=== PATIENT | male | born 1985 | race Caucasian/White ===

== ENCOUNTER 2018-05-14 18:43 | Inpatient (IN) ==
[2018-05-14] MEDS ORDERED: 0.9 % Sodium Chloride 1,000 ML IVC ONE (18:59)
[2018-05-14] MEDS ORDERED: Ketamine *HR* 12 MG in 0.9 % Sodium Chloride 100 ML IVPB ONE ×2 (18:59→21:20)
[2018-05-14] MEDS ORDERED: Ketorolac 30 MG/ML VIAL IVP ONE (18:59)
[2018-05-14] MEDS ORDERED: Ondansetron 4 MG/2 ML VIAL IVP ONE (18:59)
[2018-05-14] MEDS ORDERED: Isovue-370 500 ML INFUS..BTL IV ONE (19:00)
--- NOTE | 2018-05-14 19:02 | Emergency Department Note ---
Disposition Clinical Impression: Abscess Abdominal pain Qualifiers: Abdominal location: right lower quadrant Qualified Code(s): R10.31 - Right lower quadrant pain Crohn's colitis Qualifiers: Digestive disease complication type: unspecified complication Qualified Code(s) : K50.119 - Crohn's disease of large intestine with unspecified complications Disposition: Admitted As Inpatient Condition: Fair Referrals: NONE,PCP [Primary Care Provider] - Forms: ED Satisfaction Letter, Work/School Release Abdominal Pain HPI - General Chief Complaint: ED Abdominal Pain Stated Complaint: Low Abd Pain Time Seen by Provider: 05/14/18 18:54 Source: patient, EMS Mode of arrival: EMS Limitations: no limitations Nursing Notes Reviewed: Yes Vital Signs Reviewed: Yes - History of Present Illness HPI Narrative: 33-year-old male with a history of Crohn's presents for evaluation of lower abdominal pain. Notes pain over the past day and a half. Notes pain in the lower abdomen primarily on the right side. No aggravating factors identified. Patient states he takes Prevacid but does not follow with a GI doctor. States it he will was following with GI here however he missed an appointment and is no longer a patient. Reports some dry heaves. No fevers. Reports chronic constipation that appears to be intermittently bloody. Denies any hematuria or dysuria. Denies being on any steroids. States his last flareup was a proximally 4 years ago. Patient does have remote history of IV drug use for years ago and states that he is on Suboxone. Pain Scale: 10 - Related Data Home Medications Medication Instructions Recorded Confirmed Buprenorphine HCl/Naloxone HCl 1 each SL BID 12/14/16 12/14/16 [Suboxone 8 mg-2 mg Sl Film] Gabapentin [Neurontin] 600 mg PO TID 12/14/16 12/14/16 Omeprazole [PriLOSEC] 20 mg PO DAILY 12/14/16 12/14/16 Previous Rx's Medication Instructions Recorded Mupirocin Calcium [Bactroban Nasal] 1 gm NS BID #1 oint...g. 05/11/17 Sulfamethoxazole/Trimeth DS 1 each PO BID #20 tablet 05/11/17 [Bactrim DS] Allergies Allergy/AdvReac Type Severity Reaction Status Date / Time codeine Allergy Hives Verified 05/11/17 18:13 All systems ED: reviewed and negative except as stated. Constitutional: Denies: fever Cardiovascular: Denies: chest pain Respiratory: Denies: cough, dyspnea Gastrointestinal: Reports: abdominal pain, nausea, vomiting, diarrhea Genitourinary: Denies: urgency, dysuria, frequency, hematuria Musculoskeletal: Denies: back pain Integumentary: Denies: rash Abdominal Pain PMH - Past Medical History Medical history: Reports: other Male Surgical History: Reports: other Psychiatric history: Reports: no psych history - Social History Smoking status: Current every day smoker Alcohol use: Reports: occasionally Drug use: Reports: marijuana Physical Exam - General Limitations: no limitations General appearance: alert, in distress - Head Head exam: atraumatic, normocephalic, normal inspection - Eye Eye exam: Present: normal appearance, PERRL, EOMI - ENT ENT exam: normal exam, normal oropharynx, mucous membranes moist - Neck Neck exam: Present: normal inspection - Chest Chest inspection: Present: normal inspection, symmetric chest wall rise - Respiratory Respiratory exam: Present: normal lung sounds bilaterally. Absent: respiratory distress - Cardiovascular Cardiovascular exam: Present: regular rate, normal rhythm. Absent: systolic murmur - Abdominal Exam Abdominal exam: Present: soft, tenderness (Right lower quadrant). Absent: guarding, rebound - Extremities Exam Extremities exam: Present: normal inspection. Absent: pedal edema - Back Exam Back exam: Present: normal inspection. Absent: tenderness, CVA tenderness (R), CVA tenderness (L) - Neurological Exam Neurological exam: Present: alert, oriented X3, CN II-XII intact - Skin Skin exam: Present: warm, dry, intact, normal color Course Course Narrative: Patient seen and examined. Patient will get basic labs, IV fluids antiemetics and pain control. Patient also get a CT scan of the abdomen pelvis. Disposition pending. - Reevaluation(s) Reevaluation #1: Patient seen and examined. Patient's updated on plan of care. Discussed the case with the hospitalist who admitted the patient. States that they will contact GI in the morning. Time: 21:17 Reevaluation #2: Patient's agreeable with plan of care. Will re-dose the patient's pain medicine Time: 21:20 - Consultations Consultation #1: Discussed with the case with Dr. Lockhart. Consult is placed. States that the primary team would need to consult GI. Time: 21:12 Vital Signs Temperature 99.0 F 05/14/18 18:53 Pulse Rate 92 05/14/18 18:53 Respiratory Rate 20 05/14/18 18:53 Blood Pressure 130/93 05/14/18 18:53 O2 Sat by Pulse Oximetry 97 05/14/18 18:53 Temperature 99.0 F 05/14/18 18:53 Pulse Rate 85 05/14/18 19:14 Respiratory Rate 20 05/14/18 19:14 Blood Pressure 123/76 05/14/18 19:14 O2 Sat by Pulse Oximetry 96 05/14/18 19:14 Oxygen Delivery Oxygen Delivery Room Air Abdominal Pain - MDM Narrative Medical decision making narrative: Patient presents for concerns of abdominal pain. Patient's workup reveals an acute Crohn's flare with concerns for phlegmon versus early abscess. Given the CT findings surgery was consult at. Patient's abdomen at this time is nonsurgical. Patient does have some moderate tenderness without rebound. Does have some voluntary guarding. Patient will likely need GI involvement and the hospitalist will contact GI in the morning. Patient was covered with broad- spectrum antibiotics. Hospitalist recommended blood cultures as well as Zosyn and Flagyl. - Lab Data Lab results reviewed: Yes I reviewed the patient's lab results. Result diagrams: 05/14/18 19:04 05/14/18 19:04 Lab Results 05/14/18 05/14/18 05/14/18 Range/Units 18:52 19:04 19:04 WBC 13.9 H (4.3-11.1) K/mcL RBC 4.16 L (4.19-5.50) M/mcL Hgb 11.9 L (12.9-16.9) g/dL Hct 35.9 L (37.5-50.1) % MCV 86.3 (83.0-100.0) fL MCH 28.6 (28.0-33.3) pg MCHC 33.1 (31.6-35.5) g/dL RDW 12.6 (11.5-14.5) % Plt Count 312 (140-400) K/mcL MPV 10.7 (9.4-12.4) fL Immature Gran % 0.3 (0-4) % Seg Neutrophils % 81.6 % Lymphocytes % 9.5 % Monocytes % 5.8 % Eosinophils % 2.4 % Basophils % 0.4 % Neutrophils # 11.3 H (1.6-8.9) K/mcL Lymphocytes # 1.3 (0.6-4.6) K/mcL Monocytes # 0.8 (0.0-1.3) K/mcL Eosinophils # 0.3 (0.0-0.6) K/mcL Basophils # 0.1 (0.0-0.2) K/mcL Sodium 134 L (136-145) mEq/L Potassium 3.4 L (3.5-5.1) mEq/L Chloride 99 (98-107) mEq/L Carbon Dioxide 26 (23-29) mEq/L BUN 12 (6-20) mg/dL Creatinine 0.86 (0.70-1.30) mg/dL Est GFR ( Amer) > 60 (> 60) Est GFR (Non-Af Amer) > 60 (> 60) BUN/Creatinine Ratio 14 (6-26) Glucose 98 (70-105) mg/dL Calculated Osmolality 278 L (280-300) Lactic Acid (0.5-2.2) mmol/L Calcium 8.6 (8.6-10.3) mg/dL Total Bilirubin 0.5 (0.3-1.0) mg/dL Direct Bilirubin 0.0 (0.0-0.2) mg/dL Indirect Bilirubin 0.5 (0.0-1.2) mg/dL AST 11 L (13-39) Units/L ALT 5 L (7-52) Units/L Alkaline Phosphatase 67 (34-104) Units/L Serum Total Protein 6.4 (6.4-8.9) g/dL Albumin 3.6 (3.5-5.7) g/dL Globulin 2.8 (2.4-3.5) g/dL Albumin/Globulin Ratio 1.3 (1.1-2.2) Lipase Cancelled Urine Color Dark Yellow (Yellow) Urine Clarity Clear (Clear) Urine pH 6.0 (5.0-8.0) pH Units Ur Specific [place] 1.021 (1.010-1.025) Urine Protein 30 H (Neg-Trace) mg/dL Urine Glucose (UA) Normal (Normal) mg/dL Urine Ketones 15 H (Negative) mg/dL Urine Blood Negative (Negative) Urine Nitrite Negative (Negative) Urine Bilirubin Small H (Negative) Urine Urobilinogen Normal (Normal) mg/dL Ur Leukocyte Esterase Trace H (Negative) Urine Microscopic RBC 3-5 H (0-3) per hpf Urine Microscopic WBC 0-3 (0-3) per hpf Ur Squamous Epith Cells None Seen (None-Few) per lpf Urine Bacteria None Seen (None-Few) per hpf Hyaline Casts None Seen (None-Few) per lpf Ur Culture Indicated? YES A (NO) Specimen Rejected 05/14/18 05/14/18 05/14/18 Range/Units 19:04 19:04 20:16 WBC (4.3-11.1) K/mcL RBC (4.19-5.50) M/mcL Hgb (12.9-16.9) g/dL Hct (37.5-50.1) % MCV (83.0-100.0) fL MCH (28.0-33.3) pg MCHC (31.6-35.5) g/dL RDW (11.5-14.5) % Plt Count (140-400) K/mcL MPV (9.4-12.4) fL Immature Gran % (0-4) % Seg Neutrophils % % Lymphocytes % % Monocytes % % Eosinophils % % Basophils % % Neutrophils # (1.6-8.9) K/mcL Lymphocytes # (0.6-4.6) K/mcL Monocytes # (0.0-1.3) K/mcL Eosinophils # (0.0-0.6) K/mcL Basophils # (0.0-0.2) K/mcL Sodium (136-145) mEq/L Potassium (3.5-5.1) mEq/L Chloride (98-107) mEq/L Carbon Dioxide (23-29) mEq/L BUN (6-20) mg/dL Creatinine (0.70-1.30) mg/dL Est GFR ( Amer) (> 60) Est GFR (Non-Af Amer) (> 60) BUN/Creatinine Ratio (6-26) Glucose (70-105) mg/dL Calculated Osmolality (280-300) Lactic Acid 0.5 (0.5-2.2) mmol/L Calcium (8.6-10.3) mg/dL Total Bilirubin (0.3-1.0) mg/dL Direct Bilirubin (0.0-0.2) mg/dL Indirect Bilirubin (0.0-1.2) mg/dL AST (13-39) Units/L ALT (7-52) Units/L Alkaline Phosphatase (34-104) Units/L Serum Total Protein (6.4-8.9) g/dL Albumin (3.5-5.7) g/dL Globulin (2.4-3.5) g/dL Albumin/Globulin Ratio (1.1-2.2) Lipase < 3 L Urine Color (Yellow) Urine Clarity (Clear) Urine pH (5.0-8.0) pH Units Ur Specific [place] (1.010-1.025) Urine Protein (Neg-Trace) mg/dL Urine Glucose (UA) (Normal) mg/dL Urine Ketones (Negative) mg/dL Urine Blood (Negative) Urine Nitrite (Negative) Urine Bilirubin (Negative) Urine Urobilinogen (Normal) mg/dL Ur Leukocyte Esterase (Negative) Urine Microscopic RBC (0-3) per hpf Urine Microscopic WBC (0-3) per hpf Ur Squamous Epith Cells (None-Few) per lpf Urine Bacteria (None-Few) per hpf Hyaline Casts (None-Few) per lpf Ur Culture Indicated? (NO) Specimen Rejected Miscellaneous - Radiology Data Radiology results reviewed: Yes I reviewed the patient's radiology results. Abdomen/Pelvis CT 05/14/18 19:00 IMPRESSION: 1. Findings of acute Crohn's flare with partially rim enhancing right lower quadrant mesenteric fluid concerning for phlegmon or early abscess. No free air to suggest perforation or evidence of bowel obstruction. 2. Partially visualized tree-in-bud opacity in the left lower lobe consistent with acute bronchiolitis. D/ / eLonel Jc / Leonel Jc Interpreting Provider: Leonel Jc S.Amador - Cece Situation: Demographics Background: Presenting Complaint Assessment: Vital Signs, Course and respsone to treatment, Patient/Family Expectation Recommendation: Barrier(s) to disposition, Recommendation based on pending studies, treatments, or consults Cece Report Given to: Dr. Vito Zhao Repor Time: 21:19
--- NOTE | 2018-05-14 19:18 | Emergency Department Note ---
Disposition Clinical Impression: Crocq disease, Abscess Abdominal pain Qualifiers: Abdominal location: right lower quadrant Qualified Code(s): R10.31 - Right lower quadrant pain Disposition: Admitted As Inpatient Condition: Fair Referrals: NONE,PCP [Primary Care Provider] - Forms: ED Satisfaction Letter, Work/School Release General Adult HPI - General Chief complaint: ED Abdominal Pain Stated complaint: Low Abd Pain Time Seen by Provider: 05/14/18 18:54 Source: patient, EMS Mode of arrival: EMS Limitations: no limitations - History of Present Illness Pain Scale: 10 - Related Data Home Medications Medication Instructions Recorded Confirmed Buprenorphine HCl/Naloxone HCl 1 each SL BID 12/14/16 12/14/16 [Suboxone 8 mg-2 mg Sl Film] Gabapentin [Neurontin] 600 mg PO TID 12/14/16 12/14/16 Omeprazole [PriLOSEC] 20 mg PO DAILY 12/14/16 12/14/16 Previous Rx's Medication Instructions Recorded Mupirocin Calcium [Bactroban Nasal] 1 gm NS BID #1 oint...g. 05/11/17 Sulfamethoxazole/Trimeth DS 1 each PO BID #20 tablet 05/11/17 [Bactrim DS] Allergies Allergy/AdvReac Type Severity Reaction Status Date / Time codeine Allergy Hives Verified 05/11/17 18:13 Constitutional: Denies: fever Cardiovascular: Denies: chest pain Respiratory: Denies: cough, dyspnea Gastrointestinal: Reports: abdominal pain, nausea, vomiting, diarrhea Genitourinary: Denies: urgency, dysuria, frequency, hematuria Musculoskeletal: Denies: back pain Integumentary: Denies: rash Past Medical History - Past Medical History Medical history: Reports: other Surgical history: Reports: non-contributory Psychiatric history: Reports: no psych history - Social History Smoking Status: Current every day smoker Smokeless Tobacco Status: No Alcohol use: Reports: occasionally Drug use: Reports: marijuana Physical Exam - General Limitations: no limitations General appearance: alert, in distress Course Vital Signs Temperature 99.0 F 05/14/18 18:53 Pulse Rate 92 05/14/18 18:53 Respiratory Rate 20 05/14/18 18:53 Blood Pressure 130/93 05/14/18 18:53 O2 Sat by Pulse Oximetry 97 05/14/18 18:53 Temperature 99.0 F 10/07/18 18:53 Pulse Rate 85 05/14/18 19:14 Respiratory Rate 20 05/14/18 19:14 Blood Pressure 123/76 05/14/18 19:14 O2 Sat by Pulse Oximetry 96 05/14/18 19:14 Oxygen Delivery Oxygen Delivery Room Air Medical Decision Making - MDM Narrative Medical decision making narrative: pt with phlegmon/abscess in right ilieum. admit consult gen surg. admit to hospitalist lisa - Medical Records Medical records reviewed: Yes I reviewed the patient's medical records. - Lab Data Lab results reviewed: Yes I reviewed the patient's lab results. Result diagrams: 05/14/18 19:04 05/14/18 19:04 Lab Results 05/14/18 05/14/18 05/14/18 Range/Units 18:52 19:04 19:04 WBC 13.9 H (4.3-11.1) K/mcL RBC 4.16 L (4.19-5.50) M/mcL Hgb 11.9 L (12.9-16.9) g/dL Hct 35.9 L (37.5-50.1) % MCV 86.3 (83.0-100.0) fL MCH 28.6 (28.0-33.3) pg MCHC 33.1 (31.6-35.5) g/dL RDW 12.6 (11.5-14.5) % Plt Count 312 (140-400) K/mcL MPV 10.7 (9.4-12.4) fL Immature Gran % 0.3 (0-4) % Seg Neutrophils % 81.6 % Lymphocytes % 9.5 % Monocytes % 5.8 % Eosinophils % 2.4 % Basophils % 0.4 % Neutrophils # 11.3 H (1.6-8.9) K/mcL Lymphocytes # 1.3 (0.6-4.6) K/mcL Monocytes # 0.8 (0.0-1.3) K/mcL Eosinophils # 0.3 (0.0-0.6) K/mcL Basophils # 0.1 (0.0-0.2) K/mcL Sodium 134 L (136-145) mEq/L Potassium 3.4 L (3.5-5.1) mEq/L Chloride 99 (98-107) mEq/L Carbon Dioxide 26 (23-29) mEq/L BUN 12 (6-20) mg/dL Creatinine 0.86 (0.70-1.30) mg/dL Est GFR ( Amer) > 60 (> 60) Est GFR (Non-Af Amer) > 60 (> 60) BUN/Creatinine Ratio 14 (6-26) Glucose 98 (70-105) mg/dL Calculated Osmolality 278 L (280-300) Lactic Acid (0.5-2.2) mmol/L Calcium 8.6 (8.6-10.3) mg/dL Total Bilirubin 0.5 (0.3-1.0) mg/dL Direct Bilirubin 0.0 (0.0-0.2) mg/dL Indirect Bilirubin 0.5 (0.0-1.2) mg/dL AST 11 L (13-39) Units/L ALT 5 L (7-52) Units/L Alkaline Phosphatase 67 (34-104) Units/L Serum Total Protein 6.4 (6.4-8.9) g/dL Albumin 3.6 (3.5-5.7) g/dL Globulin 2.8 (2.4-3.5) g/dL Albumin/Globulin Ratio 1.3 (1.1-2.2) Lipase Cancelled Urine Color Dark Yellow (Yellow) Urine Clarity Clear (Clear) Urine pH 6.0 (5.0-8.0) pH Units Ur Specific [place] 1.021 (1.010-1.025) Urine Protein 30 H (Neg-Trace) mg/dL Urine Glucose (UA) Normal (Normal) mg/dL Urine Ketones 15 H (Negative) mg/dL Urine Blood Negative (Negative) Urine Nitrite Negative (Negative) Urine Bilirubin Small H (Negative) Urine Urobilinogen Normal (Normal) mg/dL Ur Leukocyte Esterase Trace H (Negative) Urine Microscopic RBC 3-5 H (0-3) per hpf Urine Microscopic WBC 0-3 (0-3) per hpf Ur Squamous Epith Cells None Seen (None-Few) per lpf Urine Bacteria None Seen (None-Few) per hpf Hyaline Casts None Seen (None-Few) per lpf Ur Culture Indicated? YES A (NO) Specimen Rejected 05/14/18 05/14/18 05/14/18 Range/Units 19:04 19:04 20:16 WBC (4.3-11.1) K/mcL RBC (4.19-5.50) M/mcL Hgb (12.9-16.9) g/dL Hct (37.5-50.1) % MCV (83.0-100.0) fL MCH (28.0-33.3) pg MCHC (31.6-35.5) g/dL RDW (11.5-14.5) % Plt Count (140-400) K/mcL MPV (9.4-12.4) fL Immature Gran % (0-4) % Seg Neutrophils % % Lymphocytes % % Monocytes % % Eosinophils % % Basophils % % Neutrophils # (1.6-8.9) K/mcL Lymphocytes # (0.6-4.6) K/mcL Monocytes # (0.0-1.3) K/mcL Eosinophils # (0.0-0.6) K/mcL Basophils # (0.0-0.2) K/mcL Sodium (136-145) mEq/L Potassium (3.5-5.1) mEq/L Chloride (98-107) mEq/L Carbon Dioxide (23-29) mEq/L BUN (6-20) mg/dL Creatinine (0.70-1.30) mg/dL Est GFR ( Amer) (> 60) Est GFR (Non-Af Amer) (> 60) BUN/Creatinine Ratio (6-26) Glucose (70-105) mg/dL Calculated Osmolality (280-300) Lactic Acid 0.5 (0.5-2.2) mmol/L Calcium (8.6-10.3) mg/dL Total Bilirubin (0.3-1.0) mg/dL Direct Bilirubin (0.0-0.2) mg/dL Indirect Bilirubin (0.0-1.2) mg/dL AST (13-39) Units/L ALT (7-52) Units/L Alkaline Phosphatase (34-104) Units/L Serum Total Protein (6.4-8.9) g/dL Albumin (3.5-5.7) g/dL Globulin (2.4-3.5) g/dL Albumin/Globulin Ratio (1.1-2.2) Lipase < 3 L Urine Color (Yellow) Urine Clarity (Clear) Urine pH (5.0-8.0) pH Units Ur Specific [place] (1.010-1.025) Urine Protein (Neg-Trace) mg/dL Urine Glucose (UA) (Normal) mg/dL Urine Ketones (Negative) mg/dL Urine Blood (Negative) Urine Nitrite (Negative) Urine Bilirubin (Negative) Urine Urobilinogen (Normal) mg/dL Ur Leukocyte Esterase (Negative) Urine Microscopic RBC (0-3) per hpf Urine Microscopic WBC (0-3) per hpf Ur Squamous Epith Cells (None-Few) per lpf Urine Bacteria (None-Few) per hpf Hyaline Casts (None-Few) per lpf Ur Culture Indicated? (NO) Specimen Rejected Miscellaneous - Radiology Data Radiology results reviewed: Yes I reviewed the patient's radiology results. Critical Care Time Critical Care Time: No Attestation Statement - Attestation Attestation: I examined this patient and my medical decision-making was reviewed with the Resident Physician. I agree with the documented findings, disposition and treatment plan as described except to the extent set forth below. 33-year-old male presents emergency room for abdominal pain. Associated with chronic diarrhea secondary to Crohn's disease. Patient states is been having pain with going to the bathroom with stool. He also admits to dry heaves today. Most the pain is in the lower abdomen but also has right lower quadrant pain. We will check lab work, CT scan to rule out any intra-abdominal pathology as a possibility. He could have abscess formation secondary to Crohn's disease or acute appendicitis or a terminal ileitis.
[2018-05-14 19:20] LABS: Basophils # 0.1 K/mcL (0.0-0.2); Basophils % 0.4 %; Eosinophils # 0.3 K/mcL (0.0-0.6); Eosinophils % 2.4 %; Hematocrit 35.9 % (37.5-50.1); Hemoglobin 11.9 g/dL (12.9-16.9); Immature Granulocytes % 0.3 % (0-4); Lymphocytes # 1.3 K/mcL (0.6-4.6); Lymphocytes % 9.5 %; Mean Corpuscular HGB Conc 33.1 g/dL (31.6-35.5); Mean Corpuscular Hemoglobin 28.6 pg (28.0-33.3); Mean Corpuscular Volume 86.3 fL (83.0-100.0); Mean Platelet Volume 10.7 fL (9.4-12.4); Monocytes # 0.8 K/mcL (0.0-1.3); Monocytes % 5.8 %; Neutrophils # 11.3 K/mcL (1.6-8.9); Platelet Count 312 K/mcL (140-400); Red Blood Count 4.16 M/mcL (4.19-5.50); Red Cell Distribution Width 12.6 % (11.5-14.5); Segmented Neutrophils % 81.6 %
[2018-05-14 19:39] LABS: Bilirubin,Urine Small (Negative); Blood,Urine Negative (Negative); Clarity,Urine Clear (Clear); Color,Urine Dark Yellow (Yellow); Glucose,Urine (UA) Normal (Normal); Ketones,Urine 15 mg/dL (Negative); Leukocyte Esterase,Urine Trace (Negative); Nitrite,Urine Negative (Negative); Protein,Urine 30 mg/dL (Neg-Trace); Specific Gravity,Urine 1.021 (1.010-1.025); Urobilinogen,Urine Normal (Normal)
[2018-05-14 19:42] LABS: Bacteria,Urine None Seen per hpf (None-Few); Hyaline Casts,Urine None Seen per lpf (None-Few); Squamous Epithelial Cell,Urine None Seen per lpf (None-Few); WBC,Urine 0-3 per hpf (0-3)
[2018-05-14 19:44] LABS: Alanine Aminotransferase 5 Units/L (7-52); Albumin 3.6 g/dL (3.5-5.7); Albumin/Globulin Ratio 1.3 (1.1-2.2); Alkaline Phosphatase 67 Units/L (34-104); Aspartate Amino Transferase 11 Units/L (13-39); BUN/Creatinine Ratio 14 (6-26); Bilirubin,Indirect 0.5 mg/dL (0.0-1.2); Bilirubin,Total 0.5 mg/dL (0.3-1.0); Blood Urea Nitrogen 12 mg/dL (6-20); Calcium 8.6 mg/dL (8.6-10.3); Carbon Dioxide 26 mEq/L (23-29); Chloride 99 mEq/L (98-107); Globulin 2.8 g/dL (2.4-3.5); Glucose 98 mg/dL (70-105); Osmolality,Calculated 278 (280-300); Potassium 3.4 mEq/L (3.5-5.1); Sodium 134 mEq/L (136-145); Total Protein 6.4 g/dL (6.4-8.9); eGFR For Non-African Americans > 60 (> 60)
[2018-05-14] MEDS ORDERED: methylPREDNISolone 125 MG/2 ML VIAL IVP ONE (21:14)
[2018-05-14] MEDS ORDERED: MetroNIDAZOLE 500 MG/100 ML 500 MG/100 ML BAG IVPB ONE (21:15)
[2018-05-14] MEDS ORDERED: Piperacillin/Tazobactam 3.375 GM in 0.9 % Sodium Chloride Mini Bag 100 ML IVPB ONE (21:16)
[2018-05-14] MEDS ORDERED: 0.9 % Sodium Chloride 1,000 ML IVC SCH (21:45)
[2018-05-14] MEDS ORDERED: Naloxone 0.4 MG/ML INJ IVP PRN (23:02)
[2018-05-14] MEDS ORDERED: Ketorolac 15 MG/ML VIAL IVP PRN (23:02)
[2018-05-14] MEDS ORDERED: Ondansetron 4 MG/2 ML VIAL IVP PRN (23:02)
--- NOTE | 2018-05-14 23:12 | Internal Med History&Physical ---
Date of Encounter: 05/14/18 Time of Encounter: 22:49 Internal Medicine - H&P: HPI Chief complaint: Crohn's disease flare, possible abdominal abscess Admitted From: Emergency Dept Plans for Post Hospital Care: Home History of present illness: Mr. Weston is a 33 year old male Patient presented to the emergency room with lower abdominal pain right worse than left with radiation to the back. Pain has persisted for about 2 days. Patient did not want to come to the emergency room initially but his cousin and girlfriend both convinced him to come. He does not see medical care regularly, but does have history of Crohn's disease. He has associated diarrhea constantly secondary to his Crohn's disease. He has had some dry heaves but denies vomiting. His last Crohn's disease flare was about 4 years ago. He denies fevers, chills and chest pain. In the emergency room patient's CBC and BMP were within normal limits. Lactic acid was 0.5, lipase is less than 3. Abdomen and pelvic CT showed acute Crohn' s flare with partial rim-enhancing right lower quadrant mesenteric fluid concerning for phlegmon or early abscess. There is no free air to suggest perforation or evidence of bowel obstruction. There is also partially visualized tree-in-bud opacity in the left lower lobe consistent with bronchiolitis. General surgery was called, and agreed to consult on the patient in the morning. He was admitted to the hospital for further management. Upon my assessment patient states that his pain is improved, but does come and go. He says sometimes the pain radiates down his legs which he has never had before. He denies pain with urination however when he has a bowel movement sometimes he has suprapubic pain. Past Med Surg Social Fam HX - Past Medical History Medical history: other Additional medical history: Chron's disease Psychiatric history: no psych history - Past Surgical History Surgical History: non-contributory Additional surgical history: Left Leg. Right Arm - Social History Smoking Status: Current every day smoker Smokeless Tobacco Status: No Alcohol use: occasionally Drug use: marijuana Internal Medicine - H&P: Meds Buprenorphine HCl/Naloxone HCl [Suboxone 8 mg-2 mg Sl Film] 1 each SL BID [History] Gabapentin [Neurontin] 600 mg PO TID 12/14/16 [History] Omeprazole [PriLOSEC] 20 mg PO DAILY 12/14/16 [History] 3 Allergy/AdvReac Type Severity Reaction Status Date / Time codeine Allergy Hives Verified 05/11/17 18:13 All Systems PM: A 10-system review of systems was performed and is negative for pertinent findings except as documented above in the HPI. - Constitutional Vitals: Temp Pulse Resp BP Pulse Ox 98.5 F 65 16 117/71 97 05/14/18 22:39 05/14/18 22:39 05/14/18 22:39 05/14/18 22:39 05/14/18 22:39 General appearance: Present: cooperative, A&O X 3, pleasant, no acute distress, answers questions appropriately Exam: As above - Head Head exam: Present: normal inspection - Eye Eye exam: Present: EOMI, normal appearance - Respiratory Respiratory exam: Present: CTAB. Absent: chest wall tenderness, decreased breath sounds, rales, wheezes - Cardiovascular Cardiovascular exam: Present: RRR. Absent: diastolic murmur, systolic murmur - GI/Abdominal GI/Abdominal exam: Present: guarding, normal bowel sounds, tenderness Additional comments: tenderness and guarding on the right side of abdomen with palpation - Extremities Exam Extremities exam: Present: warm, radial pulses palpable and symmetrical. 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 Absent: motor sensory deficit, facial droop, speech deficit - Skin Skin exam: Present: dry, normal color, warm Internal Med - H&P Results - Labs CBC & Chem 7: 05/14/18 19:04 05/14/18 19:04 - Assessment and plan (1) Crohn's colitis Current Visit: Yes Status: Acute Assessment and plan: As evidenced by patient's abdominal pelvic CT. Patient has mesenteric fluid concerning for early abscess but no free air. Dr. Lockhart of general surgery consultation from the emergency room. Follow up with general surgery recommendations GI consult in the morning Nothing by mouth Continue IV antibiotics Zosyn and Flagyl Follow-up blood cultures Toradol for pain as needed IV Zofran as needed for nausea Qualifiers: Digestive disease complication type: with abscess Qualified Code(s): K50.114 - Crohn's disease of large intestine with abscess (2) Abdominal abscess Current Visit: Yes Status: Acute Assessment and plan: As seen on abdominal imaging, general surgery consulted from the emergency room Follow up general surgery recommendations Treatment as above (3) Abdominal pain Current Visit: Yes Status: Acute Assessment and plan: Secondary to Crohn's disease Treatment as above Qualifiers: Abdominal location: right lower quadrant Qualified Code(s): R10.31 - Right lower quadrant pain (4) History of intravenous drug abuse Current Visit: Yes Status: Acute Assessment and plan: Patient has history of IV drug use and is currently taking Suboxone. Will avoid opioid analgesics (5) DVT prophylaxis Current Visit: Yes Status: Acute Assessment and plan: SCDs - Time Spent With Patient Total time spent is greater than 50% in coordination of care (as documented) at patient's floor/unit and/or counseling patient: Greater than 35 minutes
[2018-05-15 02:09] LABS: Hematocrit 33.9 % (37.5-50.1); Hemoglobin 11.3 g/dL (12.9-16.9); Mean Corpuscular HGB Conc 33.3 g/dL (31.6-35.5); Mean Corpuscular Volume 86.9 fL (83.0-100.0); Platelet Count 284 K/mcL (140-400)
[2018-05-15 02:31] LABS: BUN/Creatinine Ratio 14 (6-26); Blood Urea Nitrogen 10 mg/dL (6-20); Calcium 8.3 mg/dL (8.6-10.3); Carbon Dioxide 24 mEq/L (23-29); Chloride 104 mEq/L (98-107); Glucose 116 mg/dL (70-105); Osmolality,Calculated 286 (280-300); Potassium 3.6 mEq/L (3.5-5.1); Sodium 138 mEq/L (136-145); eGFR For Non-African Americans > 60 (> 60)
[2018-05-15] MEDS ORDERED: Ketorolac 15 MG/ML VIAL IVP ONE (02:43)
[2018-05-15] MEDS ORDERED: Piperacillin/Tazobactam 3.375 GM in 0.9 % Sodium Chloride Mini Bag 100 ML IVPB SCH (08:00)
[2018-05-15] MEDS ORDERED: MetroNIDAZOLE 500 MG/100 ML 500 MG/100 ML BAG IVPB SCH (08:00)
[2018-05-15] MEDS: Ketorolac 30 MG/ML VIAL IVP PRN ×3 (08:57→12:27)
[2018-05-15 10:15] VITALS: BP 113/67
--- NOTE | 2018-05-15 11:33 | Gastroenterology Consult Note ---
<Alexandru Avila - Last Filed: 05/15/18 11:38> Date of Encounter: 05/15/18 Time of Encounter: 10:15 - Assessment and plan (1) Crohn's colitis Status: Acute Assessment and plan: Pt with Crohn's disease of TI, cecum, and rectum. Check GI panel, fecal calprotectin, and CRP. Continue pain control. Will consider steroids once infect ion resolved. Patient had 3 no shows/same day cancels as outpatient, and was discharged from our practice on 05/19/2017. He was being treated with Humira. Qualifiers: Digestive disease complication type: with abscess Qualified Code(s): K50.114 - Crohn's disease of large intestine with abscess (2) Abdominal abscess Status: Acute Assessment and plan: Surgery consulted. Continue antibiotics. (3) Abdominal pain Status: Acute Assessment and plan: Secondary to Crohn's vs abscess. Qualifiers: Abdominal location: right lower quadrant Qualified Code(s): R10.31 - Right lower quadrant pain - Time Spent With Patient Total time spent is greater than 50% in coordination of care (as documented) at patient's floor/unit and/or counseling patient: GI History of Present Illness - Data of Consult Patient: known to practice within the last 3 years Consult date: 05/15/18 Requesting Physician: Devante Padron MD - Consult Narrative Reason for consult: Crohn's disease, possible abscess History of present illness: Mr. Weston is a 33 year old male with PMHx of Crohn's disease who presented to the ED with 2 days of lower abdominal pain, right worse than left. He does not see medical care regularly, but does have history of Crohn's disease. He has associated diarrhea constantly secondary to his Crohn's disease. CT A/P showed marked circumferential wall thickening, luminal narrowing, and mucosal hyperemia of the distal and terminal ileum with adjacent inflammatory stranding with partial rim-enhancing right lower quadrant mesenteric fluid concerning for phlegmon or early abscess no free air to suggest perforation or evidence of bowel obstruction, also partially visualized tree-in-bud opacity in the left lower lobe consistent with bronchiolitis. Procedures: Colonoscopy 12/14/2016 Dr. Green: Crohn's disease of TI, cecum, and rectum. NSAIDs: None Anticoagulation: None Past Med Surg Social Fam HX - Past Medical History Medical history: other Additional medical history: Chron's disease Psychiatric history: no psych history - Past Surgical History Surgical History: non-contributory Additional surgical history: Left Leg. Right Arm - Social History Smoking Status: Current every day smoker Packs per day: 1 Smokeless Tobacco Status: No Alcohol use: occasionally Drug use: marijuana - Family History Father Hx Family Cardiac Disorders: Yes ([place]) Hx Family Cancer: Yes (DM) Hx Family Endocrine Disorder: Yes Mother Hx Family Cardiac Disorders: Yes (GA) Hx Family Cancer: Yes Hx Family Endocrine Disorder: Yes (DM) - Gastrointestinal Gastrointestinal: Present: as per HPI - Constitutional Constitutional: as per HPI - EENT Eyes: as per HPI Ears: Present: as per HPI Nose, mouth and throat: Present: as per HPI - Cardiovascular Cardiovascular ROS: Present: as per HPI - Respiratory Respiratory IM: Present: as per HPI - Genitourinary Genitourinary: Absent: change in color, Urinary frequency - Neurological ROS Neurological GI: Present: as per HPI - Hematologic/Lymphatic Hematologic/Lymphatic pediatric: Present: as per HPI - Musculoskeletal Musculoskeletal ROS GI: Present: as per HPI - Integumentary Integumentary GI: Present: as per HPI - Psychiatric ROS Psychiatric GI: Present: as per HPI - Endocrine Endocrine IM: Present: as per HPI - Constitutional Vitals: Temp Pulse Resp BP Pulse Ox 97.7 F 54 16 113/67 97 05/15/18 10:10 05/15/18 10:10 05/15/18 10:10 05/15/18 10:10 05/15/18 10:10 General appearance: Present: cooperative, A&O X 3, no acute distress, answers questions appropriately - Head Head exam: Present: atraumatic, normocephalic - Eye Eye exam: Present: normal appearance, sclera anicteric - ENT ENT exam: Present: mucous membranes dry - Neck Neck exam general surgery: Present: normal inspection, trachea midline - Respiratory Respiratory exam: Present: CTAB. Absent: rales, rhonchi - Cardiovascular Cardiovascular exam: Present: RRR, +S1, +S2 - GI/Abdominal GI/Abdominal exam: Present: soft, tenderness (generalized, worse RLQ), no peritoneal signs. Absent: distended, firm, guarding - Rectal Rectal exam: Present: deferred - Extremities Exam Extremities exam: Present: warm - Neurological Exam Neurological exam: Present: no focal deficits - Psychiatric Psychiatric exam: Present: normal affect, normal mood - Skin Skin exam: Present: dry, intact, normal color, warm Results - Labs CBC & Chem 7: 05/15/18 01:32 05/15/18 01:32 Labs: Last Result Calcium 8.3 mg/dL (8.6-10.3) L 05/15/18 01:32 Entire Visit Hgb 11.3 g/dL (12.9-16.9) L 05/15/18 01:32 Hct 33.9 % (37.5-50.1) L 05/15/18 01:32 Total Bilirubin 0.5 mg/dL (0.3-1.0) 05/14/18 19:04 AST 11 Units/L (13-39) L 05/14/18 19:04 ALT 5 Units/L (7-52) L 05/14/18 19:04 Lipase < 3 Units/L (11-82) L 05/14/18 20:16 Consult Discharge Plan - Plan Referrals: NONE,PCP [Primary Care Provider] - <Ladarius Angel - Last Filed: 05/28/18 22:28> - Time Spent With Patient Total time spent is greater than 50% in coordination of care (as documented) at patient's floor/unit and/or counseling patient: GI History of Present Illness - Data of Consult Requesting Physician: Devante Padron MD - Consult Narrative History of present illness: Mr. Weston is a 33 year old male - Constitutional Vitals: Temp Pulse Resp BP Pulse Ox 97.7 F 54 16 113/67 97 05/15/18 10:10 05/15/18 10:10 05/15/18 10:10 05/15/18 10:10 05/15/18 10:10 Results - Labs CBC & Chem 7: 05/15/18 01:32 05/15/18 01:32 Labs: Last Result Calcium 8.3 mg/dL (8.6-10.3) L 05/15/18 01:32 C-Reactive Protein 172 mg/L (Less than 10) H 05/15/18 12:19 Entire Visit Hgb 11.3 g/dL (12.9-16.9) L 05/15/18 01:32 Hct 33.9 % (37.5-50.1) L 05/15/18 01:32 Total Bilirubin 0.5 mg/dL (0.3-1.0) 05/14/18 19:04 AST 11 Units/L (13-39) L 05/14/18 19:04 ALT 5 Units/L (7-52) L 05/14/18 19:04 Lipase < 3 Units/L (11-82) L 05/14/18 20:16 - Attending Attestation Patient with Crohn's disease unfortunately with history of non compliance as mentioned above. Manage supportively for now. Review old records I have personally performed a face to face evaluation on this patient. I have reviewed and agree with the care plan. History and Exam by me shows:
--- NOTE | 2018-05-15 12:50 | Internal Med Progress Note ---
Hospitalist Progress Note - Encounter Date of Encounter: 05/15/18 Time of Encounter: 09:50 - Subjective Interval History: Patient was seen and assessed at 9:50 AM. Patient is pleasant, awake, oriented. Patient has been made aware of plan of care since he had. He requested several times to go outside to smoke. I offered him nicotine patch, he states that he does not need one and he does not want to stop smoking. He states that GI physician hates him and he is angry that he has to stay if he only has a Crohn's flare. He reports that his primary nurse told him he does not have an abscess that he will probably go home with her today. Patient was upset, states he does not like coming to this hospital, I redirected him and explained that he would still need to be seen by surgery, as well as GI patient was agreeable. He reports diffuse abdominal pain radiating 02/14. He denies any nausea or vomiting, no diarrhea. - Exam Vitals: Temp Pulse Resp BP Pulse Ox 97.7 F 54 16 113/67 97 05/15/18 10:10 05/15/18 10:10 05/15/18 10:10 05/15/18 10:10 05/15/18 10:10 Exam: General: Pt resting quietly on bed, no distress. Skin: pwd, no rashes, lesions, redness Neurological: Pt is alert and awake, oriented x 3, Speech is clear, PERRLA, EOMI , no nystagmus, no pronator drift. strength equal x 4 extremities HEENT: mucous mumbranes moist, no conjuctival pallor Neck: supple, no tracheal deviation, no lymphadenopathy, tenderness, no thyromegaly Heart: S1S2 heard without gallops, clicks, murmurs, no bradycardia or tachycardia, pt has no peripheral edema, pedal and radial pulses palpable bilaterally. Lungs: clear throughout without wheezing, rales, or ronchi, respirations are unlabored Abdomen: soft and tender with bowel sound present, no hepatomegaly. Psych: Normal affect with good eye contact - Assessment and Plan (1) Abdominal abscess Current Visit: Yes Status: Acute Assessment and Plan: Per CT abdomen and pelvis. Surgery has been consulted. Patient is also being evaluated by GI. Continue IV Zosyn and Flagyl. Continue pain control. Continue monitor labs and vitals. Abdomen/Pelvis CT 05/14/18 19:00 IMPRESSION: 1. Findings of acute Crohn's flare with partially rim enhancing right lower quadrant mesenteric fluid concerning for phlegmon or early abscess. No free air to suggest perforation or evidence of bowel obstruction. 2. Partially visualized tree-in-bud opacity in the left lower lobe consistent with acute bronchiolitis. D/ / Leonel Jc / Leonel Jc Interpreting Provider: Leonel Jc (2) Abdominal pain Current Visit: Yes Status: Acute Assessment and Plan: As above. Continue Toradol. (3) Crohn's colitis Current Visit: Yes Status: Acute Assessment and Plan: Per abdomen CT. Patient has mesenteric fluid concerning for early abscess, no free air. GI and surgery were both consulted. Continue nothing by mouth Continue IV Zosyn and Flagyl Continue pain management Into the antiemetic continue IV fluid hydration (4) DVT prophylaxis Current Visit: Yes Status: Acute Assessment and Plan: SCDs ordered. (5) History of intravenous drug abuse Current Visit: Yes Status: Acute Assessment and Plan: Pt denies. He is currently taking Suboxone. He insists that he never injected drugs, but smoked them instead. - Time Spent with Patient Total time spent is greater than 50% in coordination of care (as documented) at patient's floor/unit and/or counseling patient: less than 15 minutes Plan of Care Discussed with: patient Internal Medicine: Result - Labs CBC & Chem 7: 05/15/18 01:32 05/15/18 01:32 Labs: Short CBC 05/15/18 Range/Units 01:32 WBC 11.2 H (4.3-11.1) K/mcL Hgb 11.3 L (12.9-16.9) g/dL Hct 33.9 L (37.5-50.1) % Plt Count 284 (140-400) K/mcL BMP 05/15/18 01:32 Sodium 138 Potassium 3.6 Chloride 104 Carbon Dioxide 24 BUN 10 Creatinine 0.72 Glucose 116 H Calcium 8.3 L Consult Discharge Plan - Plan Referrals: NONE,PCP [Primary Care Provider] - (2) Abdominal pain Qualifiers: Abdominal location: right lower quadrant Qualified Code(s): R10.31 - Right lower quadrant pain (3) Crohn's colitis Qualifiers: Digestive disease complication type: with abscess Qualified Code(s): K50.114 - Crohn's disease of large intestine with abscess
--- NOTE | 2018-05-15 13:18 | General Surgery Consult Note ---
Date of Encounter: 05/15/18 Time of Encounter: 13:16 Assessment and Plan (1) Exacerbation of Crohn's disease of small intestine Status: Acute I explained to the patient that I personally reviewed the CT scan images and report. I agree with IV antibiotics and make that with continued treatment this will help to resolve the inflammatory process. I also recommend CT scan to be repeated in the next 48-72 hours to ensure that the inflammation is resolving and not worsening. The patient states that he would like to leave. After discussing this issue with the patient and stating that would be a very poor idea particularly since oral antibiotics would not be enough to help resolve this inflammation, he states that he would prefer transfer to a different hospital. He states he would like to be transferred to [facility] or another [facility]. I explained that I would inform the nurses so that they can contact the primary service. History of Present Illness Consult date: 05/15/18 Requesting physician: Phu Arreaga (right sided pain/abnormal CT scan) History of present illness: The patient is a 33-year-old male with a past medical history significant for Crohn's disease (approximately 20 years and (who states that 3-4 days ago he started to have right lower quadrant abdominal pain. He states that the pain is constant in nature but denies any nausea or vomiting. He says that there was a 2 day period where he was not able to have a bowel movement. He normally has a bowel movement in the 15 times per day. He denies any rectal bleeding. Because of his persistent abdominal pain symptoms he presented to [facility] and laboratory studies demonstrated evidence of Crohn's exacerbation with development of a fluid collection/phlegmon. Past Med Surg Social Fam HX - Past Medical History Medical history: other Additional medical history: Chron's disease Psychiatric history: no psych history - Past Surgical History Surgical History: non-contributory Additional surgical history: Left Leg. Right Arm - Social History Smoking Status: Current every day smoker Packs per day: 1 Smokeless Tobacco Status: No Alcohol use: occasionally Drug use: marijuana - Family History Mother Hx Family Cardiac Disorders: Yes (ID) Hx Family Cancer: Yes Hx Family Endocrine Disorder: Yes (DM) Father Hx Family Cardiac Disorders: Yes (ID) Hx Family Cancer: Yes (DM) Hx Family Endocrine Disorder: Yes Medications and Allergies Buprenorphine HCl/Naloxone HCl [Suboxone 8 mg-2 mg Sl Film] 2 film SL DAILY 04/24 [History] Gabapentin [Neurontin] 800 mg PO QID 12/14/16 [History] Omeprazole [PriLOSEC] 80 mg PO DAILY 12/14/16 [History] 3 Allergy/AdvReac Type Severity Reaction Status Date / Time codeine Allergy Hives Verified 05/11/17 18:13 Review of Systems All systems PM: reviewed and no additional remarkable complaints except as stated All systems PM: The remainder of the systems were reviewed and are negative General Surgery Exam Initial Vital Signs Temp Pulse Resp BP Pulse Ox 99.0 F 92 20 130/93 97 05/14/18 18:53 10 18:53 05/14/18 18:53 05/14/18 18:53 05/14/18 18:53 - Eyes PERRL, normal ocular movement - Respiratory normal expansion, normal respiratory effort - Cardiovascular Cardiovascular exam: Present: RRR, no murmurs/rubs/gallops - Abdomen Abdomen general surgery: Present: bowel sounds present, soft, tender (Pain noted mostly in the right lower quadrant. No masses palpated.) Exam Initial Vital Signs Temp Pulse Resp BP Pulse Ox 99.0 F 92 20 130/93 97 05/14/18 18:53 10 18:53 05/14/18 18:53 05/14/18 18:53 05/14/18 18:53 Results - Labs 05/15/18 01:32 05/15/18 01:32 Abnormal lab results WBC 11.2 K/mcL (4.3-11.1) H 05/15/18 01:32 RBC 3.90 M/mcL (4.19-5.50) L 05/15/18 01:32 Hgb 11.3 g/dL (12.9-16.9) L 05/15/18 01:32 Hct 33.9 % (37.5-50.1) L 05/15/18 01:32 Neutrophils # 11.3 K/mcL (1.6-8.9) H 05/14/18 19:04 Glucose 116 mg/dL (70-105) H 05/15/18 01:32 POC Glucose 126 mg/dL (70-99) H 05/15/18 11:20 Calcium 8.3 mg/dL (8.6-10.3) L 05/15/18 01:32 AST 11 Units/L (13-39) L 05/14/18 19:04 ALT 5 Units/L (7-52) L 05/14/18 19:04 Lipase < 3 Units/L (11-82) L 05/14/18 20:16 Urine Protein 30 mg/dL (Neg-Trace) H 05/14/18 18:52 Urine Ketones 15 mg/dL (Negative) H 05/14/18 18:52 Urine Bilirubin Small (Negative) H 05/14/18 18:52 Ur Leukocyte Esterase Trace (Negative) H 05/14/18 18:52 Urine Microscopic RBC 3-5 per hpf (0-3) H 05/14/18 18:52 Ur Culture Indicated? YES (NO) A 05/14/18 18:52 All other labs normal. - Imaging CT scan - abdomen: report reviewed, image reviewed (I personally reviewed the CT scan images and report which demonstrates inflammation of the terminal ileum with fluid collection. Inflammatory/that he infiltration noted of the mesentery in this area) Consult Discharge Plan - Plan Referrals: NONE,PCP [Primary Care Provider] -
--- NOTE | 2018-05-15 13:59 | Discharge Summary ---
Date of Encounter: 05/15/18 Time of Encounter: 09:50 - Discharge Diagnosis (1) Abdominal abscess Priority: Primary Status: Acute Assessment and Plan: Per CT abdomen and pelvis. Surgery has been consulted. Patient is also being evaluated by GI. Continue IV Zosyn and Flagyl. Continue pain control. Continue monitor labs and vitals. Abdomen/Pelvis CT 05/14/18 19:00 IMPRESSION: 1. Findings of acute Crohn's flare with partially rim enhancing right lower quadrant mesenteric fluid concerning for phlegmon or early abscess. No free air to suggest perforation or evidence of bowel obstruction. 2. Partially visualized tree-in-bud opacity in the left lower lobe consistent with acute bronchiolitis. D/ / Leonel Jc / Leonel Jc Interpreting Provider: Leonel Jc (2) Abdominal pain Priority: Secondary Status: Acute Assessment and Plan: As above. Continue Toradol. Qualifiers: Abdominal location: right lower quadrant Qualified Code(s): R10.31 - Right lower quadrant pain (3) Crohn's colitis Priority: Secondary Status: Acute Assessment and Plan: Per abdomen CT. Patient has mesenteric fluid concerning for early abscess, no free air. GI and surgery were both consulted. Continue nothing by mouth Continue IV Zosyn and Flagyl Continue pain management Into the antiemetic continue IV fluid hydration Qualifiers: Digestive disease complication type: with abscess Qualified Code(s): K50.114 - Crohn's disease of large intestine with abscess (4) DVT prophylaxis Priority: Secondary Status: Acute Assessment and Plan: SCDs ordered. (5) History of intravenous drug abuse Priority: Secondary Status: Chronic Assessment and Plan: Pt denies. He is currently taking Suboxone. He insists that he never injected drugs, but smoked them instead. Hospital course: Mr. Weston is a 33 year old male Note copied from prior progress note dated today, pt left AMA. Pt was insistent on going outside to smoke, wanting to be transferred to [facility], then decided that he wanted to go AMA and that his ride was already on the way and he needed to go. - Time Spent with Patient Total time spent providing and/or coordinating discharge services: Less than 30 minutes - Discharge Medications Home Medications: Buprenorphine HCl/Naloxone HCl [Suboxone 8 mg-2 mg Sl Film] 2 film SL DAILY 04/24 [History] Gabapentin [Neurontin] 800 mg PO QID 12/14/16 [History] Omeprazole [PriLOSEC] 80 mg PO DAILY 12/14/16 [History] Allergies/Adverse Reactions: 3 Allergy/AdvReac Type Severity Reaction Status Date / Time codeine Allergy Hives Verified 05/11/17 18:13 Date of admission: 05/15/18 12:54 Primary care physician: PCP NONE Discharging clinician: Frances Dias Anticipated date of discharge: 05/15/18 - Constitutional Vitals: Temp Pulse Resp BP Pulse Ox 97.7 F 54 16 113/67 97 05/15/18 10:10 05/15/18 10:10 05/15/18 10:10 05/15/18 10:10 05/15/18 10:10 General appearance: Present: cooperative, A&O X 3, pleasant, no acute distress, answers questions appropriately Exam: As above - Head Head exam: Present: atraumatic, normocephalic - Eye Eye exam: Present: normal appearance, conjuntiva pink, sclera anicteric - Neck Neck exam general surgery: Present: supple, trachea midline. Absent: lymphadenopathy, tenderness - Respiratory Respiratory exam: Present: CTAB. Absent: accessory muscle use, rales, rhonchi, wheezes - Cardiovascular Cardiovascular exam: Present: RRR, +S1, +S2. Absent: diastolic murmur, gallop, rubs, systolic murmur - GI/Abdominal GI/Abdominal exam: Present: normal bowel sounds, soft, no peritoneal signs. Absent: distended, hepatomegaly, tenderness - Extremities Exam Extremities exam: Present: normal capillary refill, normal inspection, warm, radial pulses palpable and symmetrical. Absent: calf tenderness, cyanotic, pedal edema, tenderness - Neurological Exam Neurological exam: Present: alert, oriented X3, no focal deficits. Absent: facial droop, speech deficit - Skin Skin exam: Present: dry, intact, normal color, warm. Absent: rash - Patient Status Disposition: Left Against Medical Advice Condition: Fair - Discharge Instructions Follow Up With: NONE,PCP [Primary Care Provider] -
== END 2018-05-15 13:39 | disposition left against medical advice (07) | DRG 245 ==
LOC: EMEROOARM 18:43 → 3ANU 18:43
PROVIDERS: ADMIT Pediatrics; ATTEND Pediatrics

== ENCOUNTER 2018-05-23 10:51 | Observation (INO) ==
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
[2018-05-23] MEDS ORDERED: Isovue-370 500 ML INFUS..BTL IV ONE (11:02)
[2018-05-23] MEDS ORDERED: Ondansetron 4 MG/2 ML VIAL IVP ONE (11:03)
[2018-05-23] MEDS ORDERED: 0.9 % Sodium Chloride 1,000 ML IVC ONE (11:03)
[2018-05-23] MEDS ORDERED: *HR* FentaNYL (PF) 100 MCG/2 ML VIAL IVP ONE ×2 (11:04→12:46)
[2018-05-23 11:19] LABS: Basophils # 0.1 K/mcL (0.0-0.2); Basophils % 0.3 %; Eosinophils # 0.3 K/mcL (0.0-0.6); Eosinophils % 1.4 %; Hematocrit 42.5 % (37.5-50.1); Hemoglobin 13.8 g/dL (12.9-16.9); Immature Granulocytes % 0.3 % (0-4); Lymphocytes # 1.3 K/mcL (0.6-4.6); Lymphocytes % 7.3 %; Mean Corpuscular HGB Conc 32.5 g/dL (31.6-35.5); Mean Corpuscular Hemoglobin 28.5 pg (28.0-33.3); Mean Corpuscular Volume 87.8 fL (83.0-100.0); Mean Platelet Volume 10.8 fL (9.4-12.4); Monocytes # 0.9 K/mcL (0.0-1.3); Monocytes % 5.1 %; Neutrophils # 14.8 K/mcL (1.6-8.9); Platelet Count 311 K/mcL (140-400); Red Blood Count 4.84 M/mcL (4.19-5.50); Red Cell Distribution Width 13.4 % (11.5-14.5); Segmented Neutrophils % 85.6 %
[2018-05-23 11:25] LABS: Bilirubin,Urine Negative (Negative); Blood,Urine Negative (Negative); Clarity,Urine Clear (Clear); Color,Urine Yellow (Yellow); Glucose,Urine (UA) Normal (Normal); Ketones,Urine Negative (Negative); Leukocyte Esterase,Urine Negative (Negative); Nitrite,Urine Negative (Negative); PH,Urine 7.5 pH Units (5.0-8.0); Protein,Urine Trace mg/dL (Neg-Trace); Specific Gravity,Urine 1.017 (1.010-1.025); Urobilinogen,Urine Normal (Normal)
[2018-05-23 11:26] LABS: Bacteria,Urine None Seen per hpf (None-Few); Hyaline Casts,Urine None Seen per lpf (None-Few); RBC,Urine 0-3 per hpf (0-3); Squamous Epithelial Cell,Urine Few per lpf (None-Few); WBC,Urine 0-3 per hpf (0-3)
[2018-05-23 11:40] LABS: Alanine Aminotransferase 5 Units/L (7-52); Albumin 3.8 g/dL (3.5-5.7); Albumin/Globulin Ratio 1.1 (1.1-2.2); Alkaline Phosphatase 74 Units/L (34-104); Aspartate Amino Transferase 11 Units/L (13-39); BUN/Creatinine Ratio 11 (6-26); Bilirubin,Total 0.5 mg/dL (0.3-1.0); Blood Urea Nitrogen 8 mg/dL (6-20); Calcium 9.2 mg/dL (8.6-10.3); Carbon Dioxide 26 mEq/L (23-29); Chloride 105 mEq/L (98-107); Globulin 3.6 g/dL (2.4-3.5); Glucose 114 mg/dL (70-105); Lipase < 3 Units/L (11-82); Osmolality,Calculated 287 (280-300); Potassium 4.2 mEq/L (3.5-5.1); Sodium 139 mEq/L (136-145); Total Protein 7.4 g/dL (6.4-8.9); eGFR For Non-African Americans > 60 (> 60)
[2018-05-23] MEDS ORDERED: methylPREDNISolone 125 MG/2 ML VIAL IVP ONE (12:46)
[2018-05-23] MEDS ORDERED: MetroNIDAZOLE 500 MG/100 ML 500 MG/100 ML BAG IVPB ONE (12:46)
[2018-05-23] MEDS ORDERED: Naloxone 0.4 MG/ML INJ IVP PRN (13:36)
[2018-05-23] MEDS ORDERED: Ondansetron 4 MG/2 ML VIAL IVP PRN (13:47)
[2018-05-23] MEDS ORDERED: *HR* Heparin 5,000 UNIT/ML VIAL SQ SCH (14:00)
--- NOTE | 2018-05-23 14:07 | Internal Med History&Physical ---
Date of Encounter: 05/23/18 Time of Encounter: 14:02 Internal Medicine - H&P: HPI Chief complaint: abdominal pain Admitted From: Home Plans for Post Hospital Care: Home History of present illness: Mr. Weston is a 33 year old male H significant for Chron's disease diagnosed at the age of 15. Patient presented to the ED complaining of severe stabbing, sharp 10/10 lower abdominal pain which he reports has been getting significantly worse for the past 3 weeks. He reports that he came to the ED on May 11, and left AMA trying to go to [facility] for a second opinion, but he could not make it. He denies fever/chills, but reports feeling nauseated and having 3 episodes of non-bilious, non-bloody vomiting last night. Reports that he always loose stool with intermittent bright red blood or maroon stool. Last time he saw blood in his stool was about a week ago. Denies increase in his BM. Patient reports that about 4 months ago he was being treated with Prednisone in the outpatient setting, but he lost to follow up. Past Med Surg Social Fam HX - Past Medical History Medical history: other Additional medical history: Crohn's disease Psychiatric history: no psych history - Past Surgical History Surgical History: non-contributory Additional surgical history: Left Leg. Right Arm - Social History Smoking Status: Current every day smoker Smokeless Tobacco Status: No Alcohol use: occasionally Drug use: marijuana - Family History Mother Hx Family Cardiac Disorders: Yes ([place]) Hx Family Cancer: Yes Hx Family Endocrine Disorder: Yes (DM) Father Hx Family Cardiac Disorders: Yes ([place]) Hx Family Cancer: Yes (DM) Hx Family Endocrine Disorder: Yes Internal Medicine - H&P: Meds Buprenorphine HCl/Naloxone HCl [Suboxone 8 mg-2 mg Sl Film] 2 film SL DAILY 04/24 [History] Gabapentin [Neurontin] 800 mg PO QID 12/14/16 [History] Omeprazole [PriLOSEC] 80 mg PO DAILY 12/14/16 [History] 3 Allergy/AdvReac Type Severity Reaction Status Date / Time codeine Allergy Hives Verified 05/11/17 18:13 fentanyl AdvReac Hives Verified 05/23/18 13:47 All Systems PM: A 10-system review of systems was performed and is negative for pertinent findings except as documented above in the HPI. - Constitutional Constitutional: weakness, weight loss (subjective. ), no chills, no fever(s), no falls - EENT Eyes: no change in vision, no floaters Nose, mouth and throat: no bleeding gums - Cardiovascular Cardiovascular ROS IM: no chest pain, no palpitations, no paroxysmal nocturnal dyspnea, no syncope - Respiratory Respiratory: no cough, no dyspnea, no snoring - Gastrointestinal Gastrointestinal: abdominal pain, loose stools, nausea, vomiting, no diarrhea, no hematemesis, no melena - Genitourinary Genitourinary ROS male: no dysuria, no hematuria - Musculoskeletal Musculoskeletal ROS IM: no limited range of motion, no muscle weakness, no neck pain - Integumentary Integumentary IM: no rash - Neurological Neurological ROS: no restless legs, no weakness - Psychiatric Psychiatric: no anxiety, no suicidal ideation - Endocrine Endocrine IM: fatigue - Allergic/Immunologic Additional comments: Rest of the review of system negative. - Constitutional Vitals: Temp Pulse Resp BP Pulse Ox 98.7 F 88 16 108/71 100 05/23/18 10:57 05/23/18 12:36 05/23/18 13:48 05/23/18 13:48 05/23/18 12:36 Exam: General: Alert and oriented x4. In moderate distress due to abdominal pain. Skin: Normal color, no rash, no lesions. HEENT: EOM, pupils equal, round and reactive. Cardiovascular: RRR, Normal S1 & S2, no rubs, murmurs or gallops. Lungs: Clear breath sounds auscultation bilaterally, no wheezes or crackles. Abdomen: Generalized tenderness to superficial palpation, most significantly in the lower abdomen. NABS in all 4 quadrants, no guarding. Extremities: No deformity, no edema or tenderness, no joint swelling or clubbing. Neurological: Normal cognition and motor skills. Rest of the physical exam is non contributory Internal Med - H&P Results - Labs CBC & Chem 7: 05/23/18 11:07 05/23/18 11:07 - Assessment and plan (1) Abdominal abscess Current Visit: No Status: Acute Assessment and plan: Most likely related to chron's colitis. Plan Discussed with GI, will start patient on Ciprofloxacin and metronidazole Discussed with IR who recommended to treat patient with antibiotics. Abscess too small to be drained. Blood culture. Pain control with Tramadol 50mg/PO Q6HR PRN (2) Ileitis, terminal Current Visit: Yes Status: Acute Assessment and plan: Patient started on IV antibiotics. No steroids at this time due to the abscesses as per GI recommendations. Qualifiers: Digestive disease complication type: with abscess Qualified Code(s): K50.014 - Crohn's disease of small intestine with abscess (3) Crohn's colitis Current Visit: No Status: Acute Assessment and plan: Plan of care as above. Qualifiers: Digestive disease complication type: with abscess Qualified Code(s): K50.114 - Crohn's disease of large intestine with abscess (4) Nausea and vomiting Current Visit: Yes Status: Acute Assessment and plan: Patient started on PPI and Ondasetron 4mg/IV Q4HR PRN for nausea and vomiting. On Gentle IV hydration with d5NS @100mls/hr Clear liquid diet Qualifiers: Vomiting type: unspecified Vomiting Intractability: unspecified Qualified Code(s): R11.2 - Nausea with vomiting, unspecified (5) DVT prophylaxis Current Visit: No Status: Acute Assessment and plan: Intermittent pneumatic compression. - Time Spent With Patient Total time spent is greater than 50% in coordination of care (as documented) at patient's floor/unit and/or counseling patient: 25 - 35 minutes
[2018-05-23] MEDS: traMADol 50 MG TABLET PO PRN ×2 (15:37→21:58)
[2018-05-23] MEDS: Pantoprazole 40 MG VIAL IVP SCH (15:37)
[2018-05-23] MEDS: D5% in 0.45% NACL 1,000 ML IVC SCH (15:38)
[2018-05-23] MEDS: Gabapentin 300 MG CAPSULE PO SCH ×2 (15:38→21:57)
[2018-05-23] MEDS ORDERED: Lidocaine -MPF 1% 5 ML AMPUL INFILT ONE (16:37)
[2018-05-23] MEDS: MetroNIDAZOLE 500 MG/100 ML 500 MG/100 ML BAG IVPB SCH (17:20)
[2018-05-23] MEDS ORDERED: MethylPREDNISolone 40 MG/ML VIAL IVP SCH (18:00)
[2018-05-23] MEDS: *HR* HYDROcodone/Acet 5/325 mg TABLET PO PRN (19:05)
[2018-05-24] MEDS: MetroNIDAZOLE 500 MG/100 ML 500 MG/100 ML BAG IVPB SCH ×2 (02:59→10:01)
[2018-05-24] MEDS: *HR* HYDROcodone/Acet 5/325 mg TABLET PO PRN ×2 (03:47→09:52)
[2018-05-24 05:04] LABS: Hematocrit 36.8 % (37.5-50.1); Mean Corpuscular HGB Conc 33.2 g/dL (31.6-35.5); Mean Corpuscular Volume 87.6 fL (83.0-100.0); Mean Platelet Volume 10.6 fL (9.4-12.4); Platelet Count 319 K/mcL (140-400); Red Cell Distribution Width 13.5 % (11.5-14.5)
[2018-05-24 05:05] LABS: Hemoglobin 12.2 g/dL (12.9-16.9)
[2018-05-24 05:23] LABS: BUN/Creatinine Ratio 14 (6-26); Blood Urea Nitrogen 9 mg/dL (6-20); Calcium 8.9 mg/dL (8.6-10.3); Carbon Dioxide 25 mEq/L (23-29); Chloride 105 mEq/L (98-107); Glucose 193 mg/dL (70-105); Magnesium 2.3 mg/dL (1.6-2.6); Osmolality,Calculated 292 (280-300); Phosphorous 3.1 mg/dL (2.7-4.5); Potassium 4.1 mEq/L (3.5-5.1); Sodium 139 mEq/L (136-145); eGFR For Non-African Americans > 60 (> 60)
[2018-05-24] MEDS ORDERED: *HR* Heparin 5,000 UNIT/ML VIAL SQ SCH (06:00)
[2018-05-24] MEDS: Gabapentin 300 MG CAPSULE PO SCH (09:25)
[2018-05-24] MEDS: Pantoprazole 40 MG VIAL IVP SCH (09:25)
[2018-05-24] MEDS: D5% in 0.45% NACL 1,000 ML IVC SCH (09:29)
--- NOTE | 2018-05-24 10:18 | Gastroenterology Consult Note ---
Date of Encounter: 05/24/18 Time of Encounter: 10:12 - Assessment and plan (1) Exacerbation of Crohn's disease of small intestine Status: Acute Assessment and plan: Crohn's flare complicated by intra-abdominal abscesses. He is had increased right lower quadrant pain for the past 3 days. No change in bowel movements. He is a former patient of but was discharged from the practice due to skipping office visits. He used to take Humira but has not taken it for 5 months. He was in the hospital on 05/11/2018 for Crohn's flare and imaging demonstrating the intra-abdominal abscesses, however left AMA. WBC 15.6, afebrile, hemoglobin 12.[address] demonstrated severe distal ileitis, intra-abdominal abscesses. Reactive mesenteric adenopathy. Plan: -recommend prednisone 20mg for 2 weeks then 10mg until the patient is seen in the office. Make follow up appointment to see patient in the office upon discharge. He also needs 6weeks of cipro and flagyl. The patient stated he wanted to leave AMA due to family matters. He was informed he should stay to receive antibiotics and treatment. (2) Abdominal abscess Status: Acute Assessment and plan: Abdominal CT demonstrated severe distal ileitis, intra-abdominal abscesses. Reactive mesenteric adenopathy. - Time Spent With Patient Total time spent is greater than 50% in coordination of care (as documented) at patient's floor/unit and/or counseling patient: GI History of Present Illness - Data of Consult Patient: known to practice within the last 3 years Consult date: 05/23/18 Requesting Physician: Kaylyn Grajeda MD - Consult Narrative Reason for consult: History of Crohn's disease presenting with intra-abdominal abscess History of present illness: Mr. Weston is a 33 year old male with a past medical history of Crohn's disease who presented to [facility] complaining of abdominal pain. Gastroenterology was consulted due to history of Crohn's disease and intra- abdominal abscesses. The patient reported that his right lower abdominal pain began 3 days ago and worsened. He describes the pain is sharp and constant with occasional radiation to the right upper quadrant and epigastric region. He takes his Suboxone for the pain. He denied any fever and chills, nausea, vomiting, hematochezia. He admits one episode of melena. Denies any change in bowel movements. The patient was admitted to the hospital on 05/15/2018 for Crohn's flare and CT imaging demonstrated in the abdominal abscesses. Surgery was recommended to him however he left AMA without any antibiotics or medicat ions. He reported that he had been pain-free since then until 3 days ago. The patient used to take Humira however he has not taken it for 6 months. His last Crohn's flare was 5 years ago. She has chronic diarrhea with 5 to 20 bowel movements a day that has been the same since he was 1st diagnosed. He was diagnosed with Crohn's disease when he was [address] [facility] in [facility]. He is a known patient of Dr. Green however he is not seen him in the clinic for quite some time. The patient reported that he was discharged from the office for missing an appointment. He has no family history of Crohn's disease. He denies alcohol use. He is a current cigarette smoker of one pack per day for 15 years. He frequently smokes marijuana. 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 12/14/2016 colonoscopy by demonstrated Crohn's disease of T1< cecum and rectum. Colonoscopy: 12/14/2016 by Past Med Surg Social Fam HX - Past Medical History Attestation: Yes The following information was validated with the patient. Source: patient Medical history: other Additional medical history: Chronic Bronchitis. Crohn's disease Psychiatric history: no psych history - Past Surgical History Surgical History: non-contributory Additional surgical history: Left knee surgery - Social History Smoking Status: Current every day smoker Smokeless Tobacco Status: No Alcohol use: occasionally Drug use: marijuana - Family History Mother Hx Family Cardiac Disorders: Yes ([place]) Hx Family Cancer: Yes Hx Family Endocrine Disorder: Yes ([place]) Father Hx Family Cardiac Disorders: Yes ([place]) Hx Family Cancer: Yes (DM) Hx Family Endocrine Disorder: Yes - Gastrointestinal Gastrointestinal: Present: abdominal pain, diarrhea, melena. Absent: change in bowel habits, coffee ground emesis, constipation, hematemesis, hematochezia, nausea, vomiting - Constitutional Constitutional: no anorexia, no fatigue, no fever(s) - EENT Nose, mouth and throat: Absent: dysphagia, hoarseness - Cardiovascular Cardiovascular ROS: Absent: chest pain, palpitations - Respiratory Respiratory IM: Absent: cough, dyspnea - Genitourinary Genitourinary: Absent: change in color, Urinary frequency - Neurological ROS Neurological GI: Absent: confusion, dizziness - Hematologic/Lymphatic Hematologic/Lymphatic pediatric: Absent: easy bleeding - Musculoskeletal Musculoskeletal ROS GI: Absent: back pain, joint swelling - Integumentary Integumentary GI: Absent: jaundice, pruritis, rash - Psychiatric ROS Psychiatric GI: Absent: anxiety - Endocrine Endocrine IM: Absent: fatigue - Constitutional Vitals: Temp Pulse Resp BP Pulse Ox 97.7 F 50 16 101/65 96 05/24/18 06:34 05/24/18 06:34 05/24/18 06:34 05/24/18 06:34 05/24/18 06:34 Exam: Gen.: Vitals noted. No acute distress. AAOx3 HEENT: oropharynx clear, Normocephalic, atraumatic Neck: Supple. No adenopathy. Cardiac: RRR, no murmur, +S1/S2 Pulmonary: CTA bilaterally, no wheezes, rales or rhonchi, equal chest expansion Abdomen: soft, minimal right lower quadrant tender, Bowel sounds noted, no gu arding, nondistended MSK: ROM intact, no joint swelling noted Extremities: no BLE edema, nontender calf, no cyanosis or clubbing Neuro: A&Ox3, moves all extremities, no focal deficits Psych: Appropriate mood and behavior Results - Labs CBC & Chem 7: 05/24/18 04:50 05/24/18 04:50 Labs: Last Result Calcium 8.9 mg/dL (8.6-10.3) 05/24/18 04:50 Entire Visit Hgb 12.2 g/dL (12.9-16.9) L D 05/24/18 04:50 Hct 36.8 % (37.5-50.1) L 05/24/18 04:50 Total Bilirubin 0.5 mg/dL (0.3-1.0) 05/23/18 11:07 AST 11 Units/L (13-39) L 05/23/18 11:07 ALT 5 Units/L (7-52) L 05/23/18 11:07 Lipase < 3 Units/L (11-82) L 05/23/18 11:07 Consult Discharge Plan - Plan Referrals: NONE,PCP [Primary Care Provider] - Prescriptions: metroNIDAZOLE [Metronidazole] 500 mg PO Q8HR 42 Days #126 tablet Ciprofloxacin [Cipro] 500 mg PO BID 42 Days #84 tablet predniSONE [Prednisone] 10 mg PO DAILY 28 Days #42 tab.ds.pk
[2018-05-24 10:36] VITALS: BP 123/75
[2018-05-24] MEDS ORDERED: MetroNIDAZOLE 500 MG/100 ML 500 MG/100 ML BAG IVPB SCH (12:25)
[2018-05-24] MEDS ORDERED: *HR* HYDROcodone/Acet 5/325 mg TABLET PO PRN (12:26)
[2018-05-24] MEDS ORDERED: predniSONE 20 MG TABLET PO SCH (12:30)
--- NOTE | 2018-05-24 12:50 | Event Note ---
Date of Encounter: 05/24/18 Time of Encounter: 12:48 Spoke to the nurse who said patient left AMA. Spoke with patient about need of antibiotics(cipro and metronidazole )for 6 weeks along with prednisone(20 mg for 2 wks and then 10 mg till next GI appointment). Patient mentioned he is going to [place] as we speak to see . Asked to make follow up anointment with GI physician of his liking and see his PCP within 1 week.
[2018-05-24] MEDS ORDERED: Gabapentin 300 MG CAPSULE PO SCH (15:00)
== END 2018-05-24 11:07 | disposition left against medical advice (07) ==
LOC: 3ANU 10:51 → EMEROOARM 10:51 → SUATTDRO 13:02 → 3ANU 14:15
PROVIDERS: ADMIT Internal Medicine; ATTEND Internal Medicine